=== PATIENT | male | born 1980 | race Caucasian/White ===

== ENCOUNTER 2016-10-02 12:46 | Emergency (ER) | payer MEDICAID ==
[~2016-10-02] VITALS: Ht 170.2 cm; Wt 76.4 kg
[2016-10-02 12:49] VITALS: BP 131/89
[2016-10-02] MEDS ORDERED: LIDOCAINE 1%, 20ML SQ ONE (13:30)
[2016-10-02] MEDS ORDERED: LIDOCAINE 1%, 20ML ONE (13:38)
[2016-10-02] MEDS ORDERED: BACITRACIN ZINC OINT 500U/GM, 0.9 GM ONE (14:56)
== END 2016-10-02 15:05 | disposition home or self-care (01) ==
LOC: ED 15:04
DX: S01.151A Open bite of right eyelid and periocular area, initial encounter (principal); I10 Essential (primary) hypertension; W54.0XXA Bitten by dog, initial encounter; Y93.89 Activity, other specified; Y92.89 Other specified places as the place of occurrence of the external cause; Y99.8 Other external cause status
CPT/HCPCS: 12011

== ENCOUNTER 2018-06-01 17:47 | Emergency (ER) | payer MEDICAID ==
[~2018-06-01] VITALS: Ht 170.2 cm; Wt 91.4 kg
[2018-06-01 17:56] VITALS: BP 143/101
== END 2018-06-01 18:43 | disposition home or self-care (01) ==
LOC: ED 18:35
DX: K08.89 Other specified disorders of teeth and supporting structures (principal); F17.210 Nicotine dependence, cigarettes, uncomplicated
CPT/HCPCS: 99283; 99406

== ENCOUNTER 2020-12-29 21:27 | Emergency (ER) | payer MEDICAID ==
[~2020-12-29] VITALS: Ht 167.6 cm; Wt 75.6 kg
[2020-12-29 21:30] VITALS: BP 129/93
--- NOTE | 2020-12-29 22:11 | NUR ---
Patient given discharge instructions and they have confirmed that they understand the instructions. Patient ambulatory with steady gait. NAD, all questions answered appropriately, denies additional needs at this time. No personal belongings left in room after discharge.
== END 2020-12-29 22:13 | disposition home or self-care (01) ==
LOC: ED 22:07
DX: L02.01 Cutaneous abscess of face (principal); I10 Essential (primary) hypertension
CPT/HCPCS: 99283

== ENCOUNTER 2020-12-31 16:33 | Emergency (ER) | payer MEDICAID ==
[~2020-12-31] VITALS: Ht 167.6 cm; Wt 80.0 kg
[2020-12-31 17:20] VITALS: BP 135/105
[2020-12-31 17:51] LABS: BASOPHILS % (AUTO) 1 % (0-1); EOSINOPHILS % (AUTO) 1 % (1-7); LYMPHOCYTES % (AUTO) 16 % (22-44); MEAN CORPUSCULAR HGB CONC 35.2 g/dL (33.2-36.2); MONOCYTES % (AUTO) 7 % (2-9); NEUTROPHILS % (AUTO) 75 % (42-75); PLATELET COUNT 285 x10^3/uL (130-400); RED BLOOD COUNT 5.09 x10^6/uL (4.38-5.82); RED CELL DISTRIBUTION WIDTH 12.5 % (9.4-14.8)
[2020-12-31 18:00] LABS: ALANINE AMINOTRANSFERASE 29 U/L (12-78); ALBUMIN 3.8 g/dL (3.4-5.0); ANION GAP 5 mmol/L (5-15); CALCIUM 9.4 mg/dL (8.5-10.1); CHLORIDE 105 mmol/L (98-107); CREATININE 1.13 mg/dL (0.7-1.3)
[2020-12-31 18:03] LABS: ALKALINE PHOSPHATASE 86 U/L (45-117); BILIRUBIN,TOTAL 0.3 mg/dL (0.2-1.0); TOTAL PROTEIN 8.6 g/dL (6.4-8.2)
--- NOTE | 2020-12-31 19:56 | NUR ---
TASK RN: NIL X 1 WHEN CALLED FOR REPEAT VS.
--- NOTE | 2020-12-31 20:20 | NUR ---
preschool adviser: OSWALDO @2020
--- NOTE | 2020-12-31 20:45 | NUR ---
hvac sheet metal installer helper: OSWALDO @[id number]
== END 2020-12-31 20:47 | disposition left against medical advice (07) ==
LOC: ED 18:00
DX: K13.0 Diseases of lips (principal); R50.9 Fever, unspecified
CPT/HCPCS: 36415; 80053; 85025; 99283